=== PATIENT | female | born 1965 | race American Indian/Alaskan Native ===

== ENCOUNTER 2017-12-26 08:21 | Day surgery (SDC) | payer OTHER ==
[2015-08-04 08:19] VITALS: BMI 27.8
--- NOTE | 2017-12-26 10:07 | CP.SDSHP ---
Same Day Surgery H & P - History Proposed Procedure: US guided FNA of right and left thyroid nodules Pre-Op Diagnosis: right and left thyroid nodules - Allergies Allergies: Allergies No Known Allergies Allergy (Verified 04/15/15 17:26) - Physical Exam Mental Status: Alert & Oriented x3 - Impression Impression: Pt with bilateral thyroid nodules. Plan US guided FNA of largest right and left thyroid nodules. Pt. Evaluated Today:Candidate for Anesthesia & Procedure: No - Date & Time Date: 12/26/17 Time: 09:45 Short Stay Discharge - Short Stay Discharge Admitting Diagnosis/Reason for Visit: NONTOXIC MULTINODULAR GOITER
--- NOTE | 2017-12-26 10:08 | PCM.SURG1 ---
Surgeon's Initial Post Op Note - Surgeon's Notes Surgeon: Mauro Morataya MD Sales Representative Leather Goods: NONE Type of Anesthesia: Local Pre-Operative Diagnosis: Thyroid nodules Operative Findings: US showed complex right and left thyroid nodules Post-Operative Diagnosis: Thyroid nodules Operation Performed: US guided FNA of right and left thyroid nodules Specimen/Specimens Removed: 25 g FNA x 5 passes per nodule Estimated Blood Loss: EBL {In ML}: 0 Blood Products Given: N/A Drains Used: No Drains Post-Op Condition: Good Date of Surgery/Procedure: 12/26/17 Time of Surgery/Procedure: 10:00
--- NOTE | 2017-12-26 11:21 | US ---
PROCEDURE: Date of Procedure: 12/26/2017 PROCEDURE: 1. Ultrasound guided FNA of left thyroid nodule, CPT 06156 2. Ultrasound guided FNA of RIGHT thyroid nodule, 3. Ultrasound guidance for FNA, 21183 Medications: 6cc 1% Lidocaine HISTORY: Enlarged thyroid nodules. TECHNIQUE: Following informed consent and procedure time-out, a limited ultrasound patient's neck confirmed the presence of a 2.7 complex mixed solid and cystic left thyroid nodule. Also present is a complex, predominantly solid right thyroid nodule measuring 2.1 cm. After the patient's neck was prepped and draped in the usual sterile fashion, the skin was anesthetized with 1% lidocaine. Ultrasound-guided fine needle aspiration was then performed of the dominant left thyroid nodule. A total of 4 passes were made into the nodule with 25 gauge needle under ultrasound guidance. The FNA specimen was sent for routine pathology. Ultrasound guided FNA was then performed of the dominant right thyroid nodule. Again 4 passes were made into the nodule with 25 gauge needle. The FNA specimen was sent for routine pathology. Post biopsy ultrasound showed no hematoma. IMPRESSION: Ultrasound-guided FNA of the dominant right and left thyroid nodules.
== END 2017-12-26 10:45 | disposition home or self-care (01) ==
LOC: C.SPRAD 08:21
PROVIDERS: ATTEND Radiology Vascular & Interventional Radiology
DX: E04.2 Nontoxic multinodular goiter (principal)